=== PATIENT | male | born 1985 | race Caucasian/White ===

== ENCOUNTER 2020-06-22 12:19 | Day surgery (SDC) | payer OTHER, SELFPAY ==
[~2020-06-22 12:19] MED LIST: DEXAMETHASONE INJ 10 MG/ML VIAL ONE; LIDOCAINE 1% 10 ML VIAL INJ ONE; MAGNESIUM SULFATE INJ 1 GM/2 ML VIAL ONE; PROPOFOL 200 MG/20 ML VIAL IV ONE; ePHEDrine SULF 50 MG/ML ONE
[2020-06-22] MEDS ORDERED: SODIUM CHLORIDE 0.9% 1000ML 1,000 ML IVS ONE (12:33)
--- NOTE | 2020-06-22 12:36 | ED.PDOC ---
History of Present Illness - General Time Seen by Provider: 06/22/20 12:27 Information Source: patient, RN notes reviewed, Vital Signs reviewed Exam Limitations: no limitations - History of Present Illness Initial Comments: 35 yo M with no known PMH comes in with 5 days of abdominal pain. Started more suprapubic, periumbilical. Described it as diffuse. Thought he ate something that didn't sit well with him. Pain continued. tried home therapy including heating pad which did help temporarily. Today the pain shifted to RLQ pain. Pain worse with walking. caused him to have one episode of emesis. Did have some loose stools. no black or bloody bm. Abdominal Pain Onset Location: RLQ Review of Systems - Review of Systems Constitutional: Denies: chills, fever, malaise Respiratory: Denies: cough, short of breath Cardiology: Denies: chest pain, palpitations Gastrointestinal/Abdominal: States: abdominal pain, nausea, vomiting. Denies: constipation Genitourinary: Denies: dysuria, frequency, hematuria Musculoskeletal: Denies: joint pain, muscle pain Skin: Denies: rash Neurological: Denies: headache, paresthesia Endocrine: Denies: unexplained weight gain, unexplained weight loss Hematologic/Lymphatic: Denies: blood clots, easy bleeding, easy bruising Past Medical History (General) - Patient Medical History Hx Seizures: No Hx Stroke: No Hx Dementia: No Hx Asthma: No Hx of COPD: No Hx Cardiac Disorders: Yes - svt s/p ablation therapy Hx Congestive Heart Failure: No Hx Pacemaker: No Hx Hypertension: No Hx Thyroid Disease: No Hx Diabetes: No Hx Gastroesophageal Reflux: No Hx Renal Disease: No Hx Cancer: No Hx of HIV: No Hx Hepatitis B: No Hx Hepatitis C: No Hx MRSA: No Hx Other PMH: No Surgical History: tonsillectomy, other - prior abdominal lymph node removed. svt ablation therapy - Vaccination History Hx Tetanus, Diphtheria Vaccination: No - over 5 years Family Medical History - Family History Father Family History: No Known Physical Exam - Physical Exam General Appearance: Alert, Comfortable, No apparent distress, Well Developed, Well Groomed, Well Hydrated, Well Nourished Eyes, Ears, Nose, Throat Exam: PERRL/EOMI, normal ENT inspection Neck: non-tender, full range of motion, supple, normal inspection Respiratory: chest non-tender, lungs clear, normal breath sounds, no respiratory distress, no accessory muscle use Cardiovascular/Chest: normal peripheral pulses, regular rate, rhythm, no edema, no gallop, no JVD, no murmur Peripheral Pulses: 2+ Gastrointestinal/Abdominal: normal bowel sounds, soft, no organomegaly, no pulsatile mass, other - RLQ tenderness, + Mcburney, negative rosving, voln gaurding. 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 The history and assessments from nurses notes were reviewed and considered, and the patient's home medication list was also reviewed and considered. My assessment and the results of testing completed here in the ED were discussed with the patient/family. All questions were answered, and they express understanding of my assessment and the plan. Patient given 2 gram cefoxitin. Patient transferred to OR in stable condition. Anjali Waldron DO #[id number] - Results/Orders Results/Orders: 06/22/20 12:34 Hold Metformin x 48Hrs [id number] 06/22/20 13:34 BLOOD CULTURE Stat 06/22/20 13:39 cefOXitin SODIUM [Mefoxin] 2 gm Sodium Chl 0.9% 50Ml Min-Bag+ [NS 50ml MINI- BAG+] 50 ml IVPB ONCE Laboratory Results WBC 9.9 K/mm3 (4.8-10.8) 06/22/20 12:45 RBC 5.48 M/mm3 (4.70-6.10) 06/22/20 12:45 Hgb 14.8 gm/dL (14.0-18.0) 06/22/20 12:45 Hct 42.6 % (42.0-52.0) 06/22/20 12:45 MCV 77.7 fl (80.0-94.0) L 06/22/20 12:45 MCH 27.0 pg (27.0-31.0) 06/22/20 12:45 MCHC 34.7 g/dL (33.0-37.0) 06/22/20 12:45 RDW 14.6 % (11.5-14.5) H 06/22/20 12:45 Plt Count 263 K/mm3 (130-400) 06/22/20 12:45 MPV 7.7 fl (7.40-10.4) 06/22/20 12:45 Absolute Neuts (auto) 7.70 K/uL (1.8-6.8) H 06/22/20 12:45 Absolute Lymphs (auto) 1.40 K/uL (1.0-3.4) 06/22/20 12:45 Absolute Monos (auto) 0.50 K/uL (0.2-0.8) 06/22/20 12:45 Absolute Eos (auto) 0.10 K/uL (0.0-0.4) 06/22/20 12:45 Absolute Basos (auto) 0.10 K/uL (0.0-0.1) 06/22/20 12:45 Neutrophils % 78.4 % (42.0-78.0) H 06/22/20 12:45 Lymphocytes % 14.6 % (20.0-50.0) L 06/22/20 12:45 Monocytes % 5.0 % (2.0-9.0) 06/22/20 12:45 Eosinophils % 1.1 % (1.0-5.0) 06/22/20 12:45 Basophils % 0.9 % (0.0-2.0) 06/22/20 12:45 Sodium 140 mmol/L (135-145) 06/22/20 12:45 Potassium 3.7 mmol/L (3.6-5.0) 06/22/20 12:45 Chloride 103 mmol/L (101-111) 06/22/20 12:45 Carbon Dioxide 27 mmol/L (21-31) 06/22/20 12:45 Anion Gap 13.7 (12-18) 06/22/20 12:45 BUN 11 mg/dL (7-18) 06/22/20 12:45 Creatinine 1.02 mg/dL (0.6-1.3) 06/22/20 12:45 BUN/Creatinine Ratio 10.8 (10-20) 06/22/20 12:45 Random Glucose 94 mg/dL (70-105) 06/22/20 12:45 Serum Osmolality 278.6 mOsm/L (275-295) 06/22/20 12:45 Calcium 8.7 mg/dL (8.4-10.2) 06/22/20 12:45 Total Bilirubin 0.7 mg/dL (0.2-1.0) 06/22/20 12:45 AST 16 IU/L (10-42) 06/22/20 12:45 ALT 19 IU/L (10-60) 06/22/20 12:45 Alkaline Phosphatase 72 IU/L (42-121) 06/22/20 12:45 Serum Total Protein 7.4 gm/dL (6.4-8.2) 06/22/20 12:45 Albumin 4.4 g/dl (3.2-5.5) 06/22/20 12:45 Globulin 3.0 gm/dL (2.3-3.5) 06/22/20 12:45 Albumin/Globulin Ratio 1.5 (1.1-1.9) 06/22/20 12:45 Lipase 28 U/L (22-51) 06/22/20 12:45 Urine Color Yellow (Yellow) 06/22/20 13:20 Urine Appearance Clear (Clear) 06/22/20 13:20 Urine pH 5.5 (4.5-7.8) 06/22/20 13:20 Ur Specific [place] 1.015 (1.005-1.030) 06/22/20 13:20 Urine Protein Negative mg/dL 06/22/20 13:20 Urine Glucose (UA) Negative mg/dL (Negative) 06/22/20 13:20 Urine Ketones Negative mg/dL (NEGATIVE) 06/22/20 13:20 Urine Blood Negative (Negative) 06/22/20 13:20 Urine Nitrite Negative 06/22/20 13:20 Urine Bilirubin Negative (NEGATIVE) 06/22/20 13:20 Urine Urobilinogen 0.2 mg/dL (0.2-1.0) 06/22/20 13:20 Ur Leukocyte Esterase Negative (Negative) 06/22/20 13:20 Urine RBC 0 /hpf 06/22/20 13:20 Urine WBC 0-1 /hpf 06/22/20 13:20 Ur Epithelial Cells 0-1 /hpf 06/22/20 13:20 Urine Bacteria Not Reportable 06/22/20 13:20 Urine Mucus Trace 06/22/20 13:20 - EKG/XRAY/CT CT: apendicitis. Departure - Departure Clinical Impression: Appendicitis Qualifiers: Appendicitis type: acute appendicitis Acute appendicitis type: unspecified acute appendicitis type Qualified Code(s): K35.80 - Unspecified acute appendicitis Disposition: Discharge to Home or Self Care Referrals: Ian Thakkar MD [Primary Care Provider] - 1-2 Weeks Home Medications: Ambulatory Orders NK 04/17/14 Decision To Admit - Decistion To Admit Decision to Admit Date: 06/22/20 Decision to Admit Time: 13:20
--- NOTE | 2020-06-22 13:31 | CT ---
EXAM DESCRIPTION: Abdomen/Pelvis w/Contrast CLINICAL HISTORY: 35 years Male, rlQ PAIN COMPARISON: None. TECHNIQUE: CT of the abdomen and pelvis acquired with IV contrast material. Coronal and sagittal reformations provided. This exam was performed according to our departmental dose-optimization program, which includes automated exposure control, adjustment of the mA and/or kV according to patient size and/or use of iterative reconstruction technique. FINDINGS: Lung bases: Clear. Solid Organs: Unremarkable liver, gallbladder, spleen, pancreas, adrenal glands, kidneys. GI tract: Normal. Stomach. No small bowel obstruction. Scattered distal colonic diverticula. Mild colonic stool proximal colon. Dilated and thickened appendix measuring up to 14 mm in diameter with moderate surrounding stranding but no discrete organized fluid collection. There is mucosal thickening and luminal narrowing of the terminal ileum. Vascular: Normal. Musculoskeletal and soft tissues: No acute fracture or aggressive appearing osseous lesion. Soft tissues unremarkable. Urinary bladder: Normal. Prostate: Normal. Other: None. IMPRESSION: 1. Acute uncomplicated appendicitis without surrounding fluid collection or free air. 2. Findings the terminal ileum may relate to infection versus inflammatory bowel disease such as Crohn's. Electronically signed by: Raymond Pimentel MD 06/22/2020 1:30 PM [employer]
[2020-06-22] MEDS ORDERED: cefOXitin SODIUM 2 GM in SODIUM CHL 0.9% 50ML MIN-BAG+ 50 ML IVPB ONE (13:39)
[2020-06-22] MEDS ORDERED: fentaNYL CITRATE INJ 50 MCG/ML 2 ML AMP ONE (14:09)
[2020-06-22] MEDS ORDERED: SUGAMMADEX SODIUM 200 MG/2 ML VIAL IV ONE (14:10)
[2020-06-22] MEDS ORDERED: MIDAZOLAM INJ 2 MG/2 ML VIAL ONE (14:10)
[2020-06-22] MEDS ORDERED: DEXMEDETOMIDINE HCL 200 MCG/2 ML INJ IV ONE (14:10)
[2020-06-22] MEDS ORDERED: KETAMINE HCL 100 MG/ML VIAL ONE (14:10)
[2020-06-22] MEDS ORDERED: ROCURONIUM BROMIDE 10 MG/ML VIAL ONE (14:11)
[2020-06-22] MEDS ORDERED: FAMOTIDINE INJ 10 MG/ML VIAL IV ONE (14:11)
[2020-06-22] MEDS ORDERED: SODIUM CHLORIDE 0.9% 1000ML 1,000 ML ONE (14:13)
[2020-06-22] MEDS ORDERED: BUPIVACAINE 0.5% W/EPI 30 ML VIAL INJ ONE (14:44)
[2020-06-22] MEDS ORDERED: HYDROmorphone HCL INJ 2 MG/ML VIAL ONE (15:34)
--- NOTE | 2020-06-22 15:36 | OP ---
DATE OF PROCEDURE: 06/22/20 PREOPERATIVE DIAGNOSIS: 1. Acute appendicitis. POSTOPERATIVE DIAGNOSIS: 1. Acute appendicitis. PROCEDURE: 1. Laparoscopic appendectomy. SURGEON: Matthew Treadwell MD ANESTHESIA: General. COMPLICATIONS: None. ESTIMATED BLOOD LOSS: 20 mL. SPECIMEN: Appendix. PLAN: Discharge. INDICATION: The patient is a 35-year-old man who presented to the Emergency Room with 3 to 4 days of abdominal pain, now in the right lower quadrant. CT confirmed acute appendicitis. He had a history of cardiac ablation years ago, which has been completely stable. He had a right inguinal node removed. Otherwise, healthy man, but obese. He was consented for the procedure. PROCEDURE: The patient was brought to the operative suite in supine position. General anaesthesia was induced. He was prepped and draped in sterile fashion. 0.5% Marcaine with epinephrine was used at all incision sites. While maintaining upward traction, a johnathan was made in the base of the umbilicus. A Veress needle was introduced. There was free flow of fluid into the peritoneal cavity which was insufflated to an appropriate level with CO2 gas. A 5 mm trocar was placed followed by the camera. There was no evidence of bleeding or bowel injury. The patient was positioned and the suprapubic and right lower quadrant ports were placed without difficulty. We had some blood getting on the camera, so I put the camera down in the right lower quadrant port and looked back and there was continued oozing from the umbilical port site. We used the hook cautery to try to cauterize it and it did not work. We removed the trocar and placed the hand cautery down and it did not stop. At that time, I used a suture passer and did a [id number] stitch and tied and that did stop the oozing from that incision throughout the remainder of the case. I used the same incision and put a 5 mm blunt port superior to this and we proceeded. The appendix was identified in the right lower quadrant and elevated. A daigle load was first used across the mesoappendix to the base of the appendix which as indurated, but on palpation with the forceps, it was soft and non-necrotic. The blue stapler went nicely across the base of the appendix. It was placed in a bag and removed. The staple line was examined and was hemostatic. No bleeding or leakage. The oozing had gone to the right side and pooled a little bit near the liver and was all aspirated. Final check under low pressure revealed no evidence of continued oozing from the umbilical site. The abdomen was desufflated. The trocars were removed. All the wounds were closed with 4-0 Monocryl. He tolerated the procedure, was awakened and taken to Recovery to be discharged. #[id number] cc: Ian Thakkar MD [facility]
[2020-06-22] MEDS: fentaNYL CITRATE INJ 50 MCG/ML 2 ML AMP ONE ×2 (15:52→16:30)
[2020-06-22] MEDS ORDERED: MEPERIDINE HCL 50 MG/ML VIAL ONE (16:10)
[2020-06-22] MEDS ORDERED: HYDROcodone 5MG/APAP 325MG 1 EA TAB ONE (16:50)
[2020-06-22] MEDS ORDERED: ONDANSETRON INJ 4 MG/2 ML VIAL ONE (16:58)
[2020-06-22 18:17] VITALS: BP 144/90; TEMP 96.9; O2SAT 95
== END 2020-06-22 18:10 | disposition home or self-care (01) ==
LOC: AMB 12:19 → ER 12:19 → AMB 12:19 → ER 14:24 → AMB 18:10
PROVIDERS: ATTEND Family Medicine
DX: K35.80 Unspecified acute appendicitis (principal); K65.8 Other peritonitis
CPT/HCPCS: 00840; 36415; 44970; 74177; 80053; 81001; 83690; 85025; 87040; J0694; J1100; J1170; J2175; J2250; J2405; J3010; J3475; J3490; J7030; J7050